=== PATIENT | female | born 2005 | race Two or more races ===

== ENCOUNTER 2025-07-19 16:22 | Emergency (ER) | payer MEDICAID, OTHER ==
[~2025-07-19] VITALS: Ht 157.5 cm; Wt 48.5 kg
[2025-07-19 16:24] VITALS: BP 117/78; PULSE 98; RESP 16; TEMP 98.1; O2SAT 99
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
[2025-07-19] MEDS ORDERED: CLIN1CAP70 PO (18:52)
[2025-07-19] MEDS ORDERED: ERY05OO OP (18:52)
[2025-07-19] MEDS ORDERED: ACET500T58 PO (18:52)
--- NOTE | 2025-07-19 18:52 | DVH ---
CLINICAL INDICATION: LEFT SHOULDER PAIN TECHNIQUE: 3 radiographic views of the left shoulder were obtained. Comparison: None FINDINGS/IMPRESSION: Bony alignment appears normal No fractures or dislocations. No abnormal soft tissue calcifications.
== END 2025-07-19 19:05 | disposition home or self-care (01) ==
LOC: ER 16:22
DX: S01.81XA Laceration without foreign body of other part of head, initial encounter (principal); S40.212A Abrasion of left shoulder, initial encounter; V29.99XA Rider (driver) (passenger) of other motorcycle injured in unspecified traffic accident, initial encounter; Y93.89 Activity, other specified; Y92.410 Unspecified street and highway as the place of occurrence of the external cause; Y99.8 Other external cause status
CPT/HCPCS: 12013; 70486; 73030